=== PATIENT | female | born 1945 | race Caucasian/White ===

== ENCOUNTER → 2023-05-17 | Outpatient (CLI) | payer MEDICARE, BC, SELFPAY ==
--- NOTE | 2023-05-17 08:25 | RAD_ITS ---
EXAMINATION: Double contrast upper GI study INDICATION: Dysphagia, chronic cough, reflux EXAMINATION/TECHNIQUE: Thick and thin barium oral contrast were administered to the patient. Effervescent gas-forming crystals were also given. Total Fluoroscopic Time: 12 seconds AND number of Fluoroscopic Images: 11 images. Radiation dosage index: 38.8 mGy COMPARISON: None. FINDINGS: No masses or strictures are identified. There is a small hiatal hernia with mild reflux at the gastroesophageal junction. The mucosal pattern is unremarkable. There is normal motility. Normal appearance of the proximal small bowel. RAD/Upper GI Dual Contrast IMPRESSION: Small hiatal hernia with mild reflux at the gastroesophageal junction. No abnormal findings in the stomach or proximal small bowel. Electronically Signed: Tulio Zhang DO at 11:38 EDT ,
== END | disposition home or self-care (01) ==
PROVIDERS: PCP Family Medicine; Referring Provider Family Medicine; Visit Provider Family Medicine
DX: R05.3 Chronic cough (principal)
CPT/HCPCS: 74246